=== PATIENT | female | born 1965 | race Caucasian/White ===

== ENCOUNTER 2018-04-07 14:23 | Emergency (ER) | payer OTHER ==
--- NOTE | 2018-04-07 14:26 | PDOC ---
History of Present Illness <Nadia Chan - Last Filed: 04/07/18 16:15> - General History Source: Patient Exam Limitations: No Limitations - History of Present Illness Initial Comments: 04/07/18 14:35 The patient is a 52 year old female with no pertinent past medical history who presents to the ED s/p left ankle injury. The patient states she had been drinking last night and had tripped going up the stairs and twisted her left ankle. She reports having immediate pain, but went to bed. and reports pain with movement of the ankle. She does report that she was able to bare weight on her ankle and is walking with a limp. She denies any loss of sensation or other trauma. Denies any fevers, chills, nausea, vomiting, diarrhea, cough, SOB, chest pain, or urinary complaints. <Sruthi Orr - Last Filed: 04/07/18 16:40> - General Chief Complaint: Injury Stated Complaint: LEFT ANKLE INJURY Time Seen by Provider: 04/07/18 14:26 Past History - Immunization History Immunization Up to Date: Yes - Suicide/Smoking/Psychosocial Hx Smoking Status: Yes Smoking History: Current some day smoker Years of Tobacco Use: 25 Number of Cigarettes Smoked Daily: 10 Cigars Per Day: 0 <Nadia Chan - Last Filed: 04/07/18 16:15> <Sruthi Orr - Last Filed: 04/07/18 16:40> - Past Medical History Allergies/Adverse Reactions: Allergies Allergy/AdvReac Type Severity Reaction Status Date / Time No Known Allergies Allergy Verified 04/07/18 14:25 Home Medications: Ambulatory Orders Oxycodone HCl/Acetaminophen [Percocet 5-325 mg Tablet] 1 tab PO Q6H PRN #6 tablet MDD 4 04/07/18 Review of Systems - Review of Systems Able to Perform ROS?: Yes Comments:: 04/07/18 14:36 GENERAL/CONSTITUTIONAL: No fever or chills. No weakness. HEAD, EYES, EARS, NOSE AND THROAT: No change in vision. No ear pain or discharge. No sore throat. CARDIOVASCULAR: No chest pain or shortness of breath. RESPIRATORY: No cough, wheezing, or hemoptysis. GASTROINTESTINAL: No nausea, vomiting, diarrhea or constipation. GENITOURINARY: No dysuria, frequency, or change in urination. MUSCULOSKELETAL: (+) pain and swelling to left ankle. No neck or back pain. SKIN: No rash NEUROLOGIC: No headache, vertigo, loss of consciousness, or change in strength/ sensation. ENDOCRINE: No increased thirst. No abnormal weight change. HEMATOLOGIC/LYMPHATIC: No anemia, easy bleeding, or history of blood clots. ALLERGIC/IMMUNOLOGIC: No hives or skin allergy. <Sruthi Orr - Last Filed: 04/07/18 16:40> *Physical Exam - Vital Signs Last Vital Signs Temp Pulse Resp BP Pulse Ox 98.5 F 93 H 18 129/107 99 04/07/18 14:25 04/07/18 14:25 04/07/18 14:25 04/07/18 14:25 04/07/18 14:25 - Physical Exam Comments: 04/07/18 14:54 GENERAL: Awake, alert, and fully oriented, in no acute distress HEAD: No signs of trauma EXTREMITIES: Left Ankle: Diffusely swollen with ecchymosis over lateral malleolus. No tenderness to palpation over the 5th metatarsal or medial/lateral malleoli. Decreased active ROM but full dorsi and plantar flexion. Neurovascular intact. No clubbing or cyanosis. No cords or erythema. NEUROLOGICAL: Cranial nerves II through XII grossly intact. Normal speech, limping SKIN: Warm, Dry, normal turgor, no rashes or lesions noted. <Sruthi Orr - Last Filed: 04/07/18 16:40> ED Treatment Course - RADIOLOGY Radiograph Interpretation: 04/07/18 15:18 Left foot X-ray as reviewed by Dr. Hutson reports bimalleolar swelling, arthritic changes, distal fibular fracture <Sruthi Orr - Last Filed: 04/07/18 16:40> Medical Decision Making - Medical Decision Making 04/07/18 15:35 Pt presents to the ED after fall on everted ankle. + swelling over the lateral malleolous. PAtient reports that she was able to weight bear after the injury, but has not been able to weight bear since then. Xray shows a distal fibular tip fracture with a questionable fracture more proximally. Will discuss with orthopedics. Likely discharge home with posterior splint and ortho follow up. 04/07/18 16:[address] Kaba. Will discharge home in a posterior splint and paitent will follow up with him next week. <Nadia Chan - Last Filed: 04/07/18 16:15> - Medical Decision Making 04/07/18 15:[address] to Dr[address] Kaba, orthopedist functional mental disability teacher. Awaiting call back 04/07/18 16:00 Phone call returned by Dr. Kaba, case was discussed. <Sruthi Orr - Last Filed: 04/07/18 16:40> *DC/Admit/Observation/Transfer - Discharge Dispostion Decision to Admit order: No <Nadia Chan - Last Filed: 04/07/18 16:15> - Attestations Scribe Attestion: 04/07/18 14:37 Documentation prepared by Sruthi Orr, acting as chief medical technologist for Nadia Chan MD. <Sruthi Orr - Last Filed: 04/07/18 16:40> Diagnosis at time of Disposition: Fracture of distal fibula Qualifiers: Encounter type: initial encounter Fracture type: closed Fracture morphology: other fracture Laterality: left Qualified Code(s): S82.832A - Other fracture of upper and lower end of left fibula, initial encounter for closed fracture - Discharge Dispostion Condition at time of disposition: Stable - Prescriptions Prescriptions: Oxycodone HCl/Acetaminophen [Percocet 5-325 mg Tablet] 1 tab PO Q6H PRN #6 tablet MDD 4 PRN Reason: Severe Pain - Referrals Referrals: Ag Kaba MD [Staff Physician] - - Patient Instructions Printed Discharge Instructions: Tips to Help You Stop Smoking, DI for Ankle Fracture Additional Instructions: return to the ED for severe pain and swelling, cold numb blue swollen foot or ankle. You MUST call Dr. Kaba for follow up tomorrow. keep the splint on except to bathe until you see Dr. Kaba. Do not bear weight on your left foot until you see Dr. Kaba.
[2018-04-07 14:34] VITALS: TEMP 98.5; BMI 42.5
[2018-04-07] MEDS ORDERED: IBUPROFEN 400 MG TABLET (FP) PO ONE ×2 (15:06→15:15)
[2018-04-07 16:10] VITALS: BP 124/79; PULSE 82
== END 2018-04-07 16:40 | disposition home or self-care (01) ==
LOC: FER 14:23
PROC: 2W3RX1Z Immobilization of Left Lower Leg using Splint (ICD-10-PCS; principal; 2018-04-07)
DX: S82.832A Other fracture of upper and lower end of left fibula, initial encounter for closed fracture (principal); W18.40XA Slipping, tripping and stumbling without falling, unspecified, initial encounter; Y93.89 Activity, other specified; Y92.410 Unspecified street and highway as the place of occurrence of the external cause
CPT/HCPCS: 73610-TC-LT-FY; 73630-TC-LT; 99282-25

== ENCOUNTER 2018-09-07 18:24 | Emergency (ER) | payer OTHER ==
[2018-09-07 18:45] VITALS: BP 137/89; PULSE 87; TEMP 98.1; BMI 39.3
--- NOTE | 2018-09-07 19:14 | PDOC ---
History of Present Illness - General History Source: Patient Exam Limitations: No Limitations - History of Present Illness Initial Comments: 09/07/18 20:03 The patient is a 52 year old female, with a significant past medical history of frequent abscesses and undifferentiated connective tissue disorder, who presents to the emergency department with, 2 abscesses. As per patient the abscess on her left thigh started 5 days ago as an area of irritation that she placed a bandaid onto. She notes the area has gotten progressively worse, describing it as erythematous along the sides and dark in coloration. While getting dressed to come to the ER she observed a second abscess along her right axillary region. She notes one episode which her abscess required IV antibiotics and ID intervention. She has had incision and drainages to both sides of her breasts, her axillary regions,and left thigh. She is unaware of any prior MRSA infections. She was recently on Azithromycin and Medrol for a sinus infection (last dosage 6 days ago, prior to the onset of her abscess). She denies any drainage. She denies recent fevers, chills, headache or dizziness. She denies recent nausea, vomit, diarrhea or constipation. She denies recent dysuria, frequency, urgency or hematuria. She denies recent chest pain or shortness of breath. Allergies: NKDA Social history: Smoker. <Michelle Malhotra - Last Filed: 09/07/18 20:02> <Mireya Roberts - Last Filed: 09/08/18 23:58> - General Chief Complaint: Wound Stated Complaint: LEFT LEG WOUND Time Seen by Provider: 09/07/18 19:10 Past History <Michelle aMlhotra - Last Filed: 09/07/18 20:02> - Past Medical History COPD: No Other medical history: CONNECTIVE TISSUE DISORDER - Immunization History Immunization Up to Date: Yes - Suicide/Smoking/Psychosocial Hx Smoking Status: Yes Smoking History: Current every day smoker Years of Tobacco Use: 25 Have you smoked in the past 12 months: Yes Number of Cigarettes Smoked Daily: 20 Cigars Per Day: 0 Information on smoking cessation initiated: Yes 'Breaking Loose' booklet given: 09/07/18 Hx Alcohol Use: No Drug/Substance Use Hx: No Substance Use Type: None <Mireya Roberts - Last Filed: 09/08/18 23:58> - Past Medical History Allergies/Adverse Reactions: Allergies Allergy/AdvReac Type Severity Reaction Status Date / Time No Known Allergies Allergy Verified 09/07/18 18:25 Home Medications: Ambulatory Orders Clindamycin HCl 300 mg PO TID #15 capsule 09/07/18 Review of Systems - Review of Systems Able to Perform ROS?: Yes Comments:: 09/07/18 20:02 CONSTITUTIONAL: Absent: fever, no chills, no fatigue EYES: Absent: visual changes ENT: Absent: ear pain, no sore throat CARDIOVASCULAR: Absent: chest pain, no palpitations RESPIRATORY: Absent: cough, no SOB GI: Absent: abdominal pain, no nausea, no vomiting, no constipation, no diarrhea GENITOURINARY: Absent: dysuria, no frequency, no hematuria MUSKULOSKELETAL: Absent: back pain, no arthralgia, no myalgia SKIN: Present: Abscess to the left thigh and right axilla. Absent: rash NEURO: Absent: headache All Other Systems: Reviewed and Negative <Michelle Malhotra - Last Filed: 09/07/18 20:02> *Physical Exam - Vital Signs Last Vital Signs Temp Pulse Resp BP Pulse Ox 98.1 F 87 20 137/89 98 09/07/18 18:25 09/07/18 18:25 09/07/18 18:25 09/07/18 18:25 09/07/18 18:25 - Physical Exam Comments: 09/07/18 20:02 GENERAL: The patient is awake, alert, and fully oriented, in no acute distress. HEAD: Normal with no signs of trauma. NECK: Normal range of motion, supple without lymphadenopathy, JVD, or masses. LUNGS: Breath sounds equal, clear to auscultation bilaterally. No wheeze/ crackles. HEART: Regular rate and rhythm, normal S1 and S2 without murmur or rub. ABDOMEN: Soft/nontender/nondistended. BS wnl. No guarding or rebound. No palpable masses. No hepatosplenomegaly. EXTREMITIES: Normal range of motion, no edema. No clubbing or cyanosis. No cords. NEUROLOGICAL: Cranial nerves II through XII grossly intact. Normal speech, normal gait. PSYCH: Normal mood, normal affect. +SKIN: Left thigh:3cm x 1cm ecchymotic area with tenderness, blistering, and mild fluctuance without discharge; surrounding 15 x 20cm area of erythema to the medial, proximal left thigh. No streaking. Right axilla: 1 cm x cm area of erythema, nontender, and non-fluctuant to the right axilla. <Michelle Malhotra - Last Filed: 09/07/18 20:02> - Vital Signs Last Vital Signs Temp Pulse Resp BP Pulse Ox 98.1 F 87 20 137/89 98 09/07/18 18:25 09/07/18 18:25 09/07/18 18:25 09/07/18 18:25 09/07/18 18:25 <Mireya Roberts - Last Filed: 09/08/18 23:58> Procedures - Incision and Drainage I&D Site: Left: Leg Betadine cleansed: No Anesthesia: 1% Lidocaine (Hibiclens/ethanol) Volume(ml): 2 Blade Size: 11 Iodinated Packin/4 in Plain Packing: Yes Complications: none Dressing: Yes (sterile gauze) Progress: Medial portion of the proximal left thigh with abscess and surrounding cellulitic area prepped using Hibiclens and sterilely draped. 2 mL of 1% lidocaine infiltrated into the local area for anesthesia. #11 blade used to make a 1.5 cm horizontal incision. Copious amount of purulent drainage flowed out. Sample sent for culture and sensitivity. Wound irrigated thoroughly with 50 mL of sterile normal saline. Wound was fully palpated and no further purulent material was able to be obtained. Quarter-inch packing (small amount) placed in the wound. Patient tolerated procedure well <Mireya Roberts - Last Filed: 09/08/18 23:58> ED Treatment Course - Medications Given in the ED: ED Medications Discontinued Medications Generic Name Dose Route Start Last Admin Trade Name Freq PRN Reason Stop Dose Admin Clindamycin HCl 300 mg 09/07/18 19:57 09/07/18 20:01 Cleocin - PO 09/07/18 19:58 300 mg ONCE ONE Administration <Michelle Malhotra - Last Filed: 09/07/18 20:02> Medical Decision Making - Medical Decision Making Documentation has been prepared under my direction and personally reviewed by me in its entirety. I attest that this documented accurately reflects all work, treatment, procedures and medical decision making performed by me. As noted above, this 52-year-old woman with significant history of multiple skin abscesses in the past, some of which required incision and drainage presents with a few day history of progressive swelling and pain in the medial portion of her proximal left thigh. Patient has had an abscess incised and drained in this exacts position previously. Patient states that she has been to dermatologists and other specialists regarding her multiple episodes of skin abscesses without effective change in prevention and care of these abscesses. Exam as noted above. Procedure note of incision and drainage as noted above. Sample of discharge sent to microbiology for culture and sensitivity testing. Cause of the significant cellulitic border around the abscess, patient was started on antibiotic treatment, clindamycin 300 mg to be given here in the emergency room followed by 5 day course of 300 mg 3 times a day. Although patient states that she has never been told that she has MRSA, because of her frequent skin infections, she likely may be colonized by resistant organisms. Patient return if she has worsening pain,swelling or develops a fever <Mireya Roberts - Last Filed: 09/08/18 23:58> *DC/Admit/Observation/Transfer - Attestations Scribe Attestion: 09/07/18 20:03 Documentation prepared by Michelle Malhotra, acting as medical supply technician for Mireya Roberts MD. <Michelle Malhotra - Last Filed: 09/07/18 20:02> <Mireya Roberts - Last Filed: 09/08/18 23:58> Diagnosis at time of Disposition: Abscess of left thigh - Discharge Dispostion Disposition: HOME - Prescriptions Prescriptions: Clindamycin HCl 300 mg PO TID #15 capsule - Patient Instructions Printed Discharge Instructions: Incision and Drainage of a Skin Abscess Additional Instructions: remove packing from wound in 24 hours clindamycin 300mg 3 X a day for 5 days return to ER if you worsening pain/redness/swelling or if you develop fever followup with your doctor within the next 5 days
[2018-09-07] MEDS ORDERED: CLINDAMYCIN HCL 300 MG CAPSULE PO ONE (19:57)
[2018-09-07] MEDS ORDERED: CLINDAMYCIN HCL 150 MG CAPSULE (FP) ONE (20:00)
== END 2018-09-07 20:05 | disposition home or self-care (01) ==
LOC: FER 18:24
PROC: 0H9LXZZ Drainage of Left Lower Leg Skin, External Approach (ICD-10-PCS; principal; 2018-09-07)
DX: L02.411 Cutaneous abscess of right axilla (principal); L02.416 Cutaneous abscess of left lower limb; F17.210 Nicotine dependence, cigarettes, uncomplicated; L94.9 Localized connective tissue disorder, unspecified
CPT/HCPCS: 87070; 87077; 87205; 99282-25

== ENCOUNTER → 2022-11-15 | Day surgery (SDC) | payer OTHER | END | disposition home or self-care (01) | LOC: JRADUS-SUR 08:26 | PROVIDERS: ATTEND Obstetrics & Gynecology | PROC: 0H9U3ZX Drainage of Left Breast, Percutaneous Approach, Diagnostic (ICD-10-PCS; principal; 2022-11-15) | DX: N64.9 Disorder of breast, unspecified (principal); Z53.8 Procedure and treatment not carried out for other reasons | CPT/HCPCS: 76642-TC-LT ==